=== PATIENT | female | born 1980 | race Caucasian/White ===

== ENCOUNTER 2022-06-21 11:00 | Outpatient (RCR) | payer OTHER, SELFPAY | END 2022-07-31 14:58 | disposition home or self-care (01) | LOC: HO.PT 11:00 | PROVIDERS: Visit Provider Obstetrics & Gynecology | DX: O26.899 Other specified pregnancy related conditions, unspecified trimester (principal); R10.2 Pelvic and perineal pain | CPT/HCPCS: 97110; 97112; 97140; 97161 ==

== ENCOUNTER 2025-01-07 13:03 | Outpatient (RCR) | payer OTHER, SELFPAY | END 2025-01-25 11:54 | disposition home or self-care (01) | LOC: HO.PT 13:03 | PROVIDERS: PCP Internal Medicine; Visit Provider Nurse Practitioner Family | DX: R10.2 Pelvic and perineal pain (principal) | CPT/HCPCS: 97110; 97112; 97140; 97161; 97530 ==